=== PATIENT | female | born 2000 | race Caucasian/White ===

== ENCOUNTER 2021-08-24 21:37 | Day surgery (SDC) | payer OTHER ==
[2021-08-24] MEDS ORDERED: hydrALAZINE 20 MG/ML VIAL SLOW IVP PRN (22:47)
[2021-08-24 23:12] LABS: Bilirubin Neg (Negative); Blood, Urine Negative (Negative); Clarity Clear (Clear); Glucose, Urine (Dipstick) Normal (Negative); Ketone, Urine Negative (Negative); Leukocyte 25 (Negative); Nitrite Negative (Negative); Protein, Urine (Dipstick) Negative (Neg-Trace); Specific Gravity, Urine 1.005 (1.002-1.036); Urobilinogen Normal mg/dL (Less than 2)
[2021-08-24 23:20] LABS: Bacteria/HPF 1+ HPF (None Seen); RBC/HPF 0-3 HPF (0-3); Squamous Epithelial 0-3 HPF (0-3); WBC/HPF 0-3 HPF (0-3)
[2021-08-24 23:21] LABS: Urine Culture Reflex Yes Yes
== END 2021-08-24 23:04 | disposition home or self-care (01) ==
LOC: CSHLD/OP 21:37
PROVIDERS: ATTEND Obstetrics & Gynecology
DX: O26.852 Spotting complicating pregnancy, second trimester (principal); O99.612 Diseases of the digestive system complicating pregnancy, second trimester; K21.9 Gastro-esophageal reflux disease without esophagitis; O99.891 Other specified diseases and conditions complicating pregnancy; R82.71 Bacteriuria; Z3A.26 26 weeks gestation of pregnancy; Z79.899 Other long term (current) drug therapy; Z91.040 Latex allergy status
CPT/HCPCS: 81001; 87086

== ENCOUNTER 2021-11-17 21:07 | Day surgery (SDC) | payer OTHER ==
[2021-11-17 21:48] VITALS: BMI 39.6
[2021-11-17] MEDS ORDERED: hydrALAZINE 20 MG/ML VIAL SLOW IVP PRN (22:47)
== END 2021-11-17 22:46 | disposition home or self-care (01) ==
LOC: CSHLD/OP 21:07
PROVIDERS: ATTEND Family Medicine
DX: O47.1 False labor at or after 37 completed weeks of gestation (principal); Z79.899 Other long term (current) drug therapy; Z91.040 Latex allergy status; Z3A.39 39 weeks gestation of pregnancy
CPT/HCPCS: 99282

== ENCOUNTER 2021-11-23 09:00 | Outpatient (CLI) | payer OTHER | END 2021-11-23 09:01 | disposition home or self-care (01) | LOC: CSHLAB 09:00 | PROVIDERS: ATTEND Family Medicine | DX: Z20.822 Contact with and (suspected) exposure to COVID-19 (principal) | CPT/HCPCS: 87811 ==

== ENCOUNTER 2021-11-28 19:30 | Inpatient (IN) | payer OTHER ==
[2021-11-29] MEDS ORDERED: Promethazine HCl 25 MG/ML VIAL IM PRN ×2 (03:33→23:18)
[2021-11-29] MEDS ORDERED: Ibuprofen 800 MG TAB PO PRN (03:33)
[2021-11-29] MEDS ORDERED: Lactated Ringer's 1,000 ML IV SCH (03:33)
[2021-11-29] MEDS ORDERED: Methylergonovine 0.2 MG/ML VIAL IM PRN (03:33)
[2021-11-29] MEDS ORDERED: Carboprost 250 MCG/ML AMP IM PRN (03:33)
[2021-11-29] MEDS ORDERED: Lidocaine 1% (PF) 30 ML VIAL SC PRN (03:33)
[2021-11-29] MEDS ORDERED: Misoprostol 200 MCG TAB PR PRN (03:33)
[2021-11-29] MEDS ORDERED: hydrALAZINE 20 MG/ML VIAL SLOW IVP PRN ×2 (03:33→23:53)
[2021-11-29] MEDS ORDERED: Diphenoxylate HCl/Atropine Tablet PO PRN (03:33)
[2021-11-29] MEDS ORDERED: Ondansetron PF 4 MG/2 ML Vial IVP PRN ×3 (03:33→23:53)
[2021-11-29] MEDS ORDERED: HYDROcodone/Acetaminophen 5/325 mg Tablet PO PRN ×3 (03:33→23:53)
[2021-11-29] MEDS ORDERED: Acetaminophen 500 MG TAB PO PRN (03:33)
[2021-11-29] MEDS ORDERED: NS w/ Oxytocin 30 units 500 ML IV SCH ×2 (03:33→23:53)
[2021-11-29 03:52] VITALS: BMI 40.2
[2021-11-29] MEDS: Misoprostol 100 MCG TAB VAG SCH ×2 (04:29→07:40)
[2021-11-29 04:43] LABS: Hemoglobin 11.8 g/dL (12.0-15.5); Mean Corpuscular HGB CONC 33.7 g/dL (32.0-36.0); Mean Corpuscular Hemoglobin 30.3 pg (27.0-33.0); Mean Corpuscular Volume 89.7 fl (81.6-98.3); Mean Platelet Volume 11.7 fl (7.4-10.4); Platelet Count 131 10x3/uL (150-450); RBC Distribution Width 16.4 % (11.5-14.5); White Blood Cell (WBC) Count 7.9 10x3/uL (3.5-10.5)
[2021-11-29 05:08] LABS: HBSAg Index 0.18 S/CO (0-0.99); Hep B Surf Ag Non-Reactive S/CO (NonReactive)
[2021-11-29 05:09] LABS: Syphilis Antibody Nonreactive (Nonreactive); Syphilis Antibody Index 0.02 S/CO (<1.00 Non-Reactive)
[2021-11-29] MEDS ORDERED: Bupivacaine/Epinephrine 0.25% 30 ML VIAL ONE (08:00)
[2021-11-29] MEDS ORDERED: Bupivacaine 0.25% HCL 30 ML VIAL ONE (08:00)
[2021-11-29] MEDS: NS w/ Oxytocin 30 units 500 ML IV SCH ×2 (11:33→22:34)
[2021-11-29] MEDS ORDERED: Fentanyl 2 mcg/Bup 0.1% Cadd 100 ML ONE ×2 (13:41→20:14)
[2021-11-29 22:46] LABS: RapidComm Collect By CBN
[2021-11-29 22:49] LABS: RapidComm Collect By CBN; pH (Cord, venous) 7.178 (7.250-7.350)
[2021-11-29] MEDS ORDERED: Acetaminophen 325 MG TAB PO PRN (23:18)
[2021-11-29] MEDS ORDERED: Lactated Ringer's 500 ML IV PRN (23:18)
[2021-11-29] MEDS ORDERED: Naloxone HCl 0.4 mg/ml Vial IVP PRN ×2 (23:18)
[2021-11-29] MEDS ORDERED: diphenhydrAMINE 50 MG/ML VIAL IVP PRN (23:18)
[2021-11-29] MEDS ORDERED: ePHEDrine Sulfate 50 MG/10 ML VIAL SLOW IVP PRN (23:18)
[2021-11-29] MEDS ORDERED: Moisturizing Cream (Eucerin) 113 GM JAR TOP PRN (23:18)
[2021-11-29] MEDS ORDERED: Fentanyl 2 mcg/Bupivacaine 0.1% Cassette 100 ML EPIDURAL SCH (23:30)
[2021-11-29] MEDS ORDERED: Communication Order-Pharmacy FS SCH (23:30)
[2021-11-29] MEDS ORDERED: Boostrix 0.5 ML (Tdap) VIAL (>/=7 yrs of age) IM ONE (23:53)
[2021-11-29] MEDS ORDERED: Lanolin Ointment 7 GM TUBE TOP PRN (23:53)
[2021-11-29] MEDS ORDERED: Milk Of Magnesia 30 ML UDCUP PO PRN (23:53)
[2021-11-29] MEDS ORDERED: diphenhydrAMINE 25 MG CAP PO PRN (23:53)
[2021-11-29] MEDS ORDERED: Benzocaine-Menthol 82.5 ML CAN TOP PRN (23:53)
[2021-11-29] MEDS ORDERED: Bisacodyl 10 MG SUPP PR PRN (23:53)
[2021-11-29] MEDS ORDERED: Preparation H Ointment 28 GM TUBE PR PRN (23:53)
[2021-11-30] MEDS: Misoprostol 100 MCG TAB VAG SCH (00:42)
[2021-11-30] MEDS: Ibuprofen 800 MG TAB PO SCH ×3 (01:44→17:29)
[2021-11-30] MEDS ORDERED: Ibuprofen 800 MG TAB PO SCH (06:00)
[2021-11-30] MEDS: Docusate 100 MG CAP PO SCH ×2 (09:25→21:26)
[2021-11-30] MEDS: Prenatal Vitamin 1 TAB PO SCH (09:25)
[2021-11-30] MEDS: Ferrous Sulfate 325 MG TAB PO SCH ×2 (09:31→16:46)
[2021-12-01] MEDS: Ibuprofen 800 MG TAB PO SCH ×2 (02:35→13:37)
[2021-12-01 09:00] VITALS: BP 113/72; TEMP 98
[2021-12-01] MEDS: Prenatal Vitamin 1 TAB PO SCH (13:36)
[2021-12-01] MEDS: Docusate 100 MG CAP PO SCH (13:36)
[2021-12-01] MEDS: Ferrous Sulfate 325 MG TAB PO SCH (13:36)
== END 2021-12-01 15:55 | disposition home or self-care (01) | DRG 807 ==
LOC: CSHLD 11-29 03:22 → CSHPP 11-30 00:21
PROVIDERS: ADMIT Family Medicine; ATTEND Family Medicine
PROC: 10907ZC Drainage of Amniotic Fluid, Therapeutic from Products of Conception, Via Natural or Artificial Opening (ICD-10-PCS; principal; 2021-11-29)
PROC: 10E0XZZ Delivery of Products of Conception, External Approach (ICD-10-PCS; 2021-11-29)
PROC: 3E033VJ Introduction of Other Hormone into Peripheral Vein, Percutaneous Approach (ICD-10-PCS; 2021-11-29)
PROC: 0W8NXZZ Division of Female Perineum, External Approach (ICD-10-PCS; 2021-11-29)
PROC: 10H07YZ Insertion of Other Device into Products of Conception, Via Natural or Artificial Opening (ICD-10-PCS; 2021-11-29)
DX: O80 Encounter for full-term uncomplicated delivery (principal); Z37.0 Single live birth; Z3A.40 40 weeks gestation of pregnancy; Z91.040 Latex allergy status
CPT/HCPCS: 36415; 51702; 82805; 85027; 86780; 86850; 86900; 86901; 87340; J2405; J2590; S0020

== ENCOUNTER 2024-04-25 23:16 | Emergency (ER) | payer OTHER, SELFPAY ==
[2024-04-25 23:48] LABS: Specific Gravity, Urine 1.015 (1.005-1.030); pH, Urine 6.5 (5.0-9.0)
[2024-04-25 23:51] LABS: Pregnancy Test - Urine (BHCG) Negative (Negative); Pregu Control Background? CLEAR/WHITE (CLR/WHITE); Pregu Control Bar Appear? YES (CONTROL BAR)
[2024-04-25 23:52] LABS: Clarity Clear (Clear); Leukocyte Unable to Interpret (Negative); Nitrite Unable to Interpret (Negative); Protein, Urine (Dipstick) Unable to Interpret mg/dl (Neg-Trace); Specific Gravity 1.015 (1.002-1.036)
[2024-04-25 23:53] LABS: Bilirubin Unable to Interpret (Negative); Blood, Urine Unable to Interpret (Negative); Glucose, Urine (Dipstick) Unable to Interpret mg/dL (Negative); Ketone, Urine Unable to Interpret mg/dL (Negative); Urobilinogen UNABLE TO INTERPRET mg/dL (Less than 2)
[2024-04-26 00:28] LABS: Bacteria/HPF 2+ HPF (None Seen); CAUTI Indications for Culture Dysuria,urgency,freq; RBC/HPF 0-3 HPF (0-3); Squamous Epithelial 0-3 HPF (0-3); WBC/HPF 0-3 HPF (0-3)
[2024-04-26 00:30] LABS: Urine Culture Reflex No No
== END 2024-04-26 00:34 | disposition home or self-care (01) ==
LOC: CSHERS 23:16
DX: N39.0 Urinary tract infection, site not specified (principal); F17.290 Nicotine dependence, other tobacco product, uncomplicated
CPT/HCPCS: 81001; 81025; 99283

== ENCOUNTER 2024-11-26 20:02 | Emergency (ER) | payer MEDICAID, OTHER | END 2024-11-26 22:02 | disposition home or self-care (01) | LOC: CSHERS 20:02 | DX: O98.513 Other viral diseases complicating pregnancy, third trimester (principal); U07.1 COVID-19; O99.333 Smoking (tobacco) complicating pregnancy, third trimester; Z3A.30 30 weeks gestation of pregnancy | CPT/HCPCS: 71045; 87081; 87428; 87430; 93005 ==

== ENCOUNTER 2025-02-02 19:05 | Inpatient (IN) | payer MEDICAID ==
[2025-02-02] MEDS ORDERED: hydrALAZINE 20 MG/ML VIAL SLOW IVP PRN (19:28)
[2025-02-02] MEDS ORDERED: Ibuprofen 800 MG TAB PO PRN (19:28)
[2025-02-02] MEDS ORDERED: HYDROcodone/Acetaminophen 5/325 mg Tablet PO PRN (19:28)
[2025-02-02] MEDS ORDERED: Lidocaine 1% (PF) 30 ML VIAL SC PRN (19:28)
[2025-02-02] MEDS ORDERED: Ondansetron PF 4 MG/2 ML Vial IVP PRN (19:28)
[2025-02-02] MEDS ORDERED: Diphenoxylate HCl/Atropine Tablet PO PRN (19:28)
[2025-02-02] MEDS ORDERED: Carboprost 250 MCG/ML AMP IM PRN (19:28)
[2025-02-02] MEDS ORDERED: Methylergonovine 0.2 MG/ML VIAL IM PRN (19:28)
[2025-02-02] MEDS ORDERED: Tranexamic Acid 1,000 MG/10 ML VIAL IVP PRN (19:28)
[2025-02-02] MEDS ORDERED: Acetaminophen 500 MG TAB PO PRN (19:28)
[2025-02-02] MEDS ORDERED: Oxytocin 30 units/NS 500 ML 500 ML IV SCH (19:30)
[2025-02-02 19:50] VITALS: BMI 40.8
[2025-02-02 20:39] LABS: Hematocrit 31.9 % (34.9-44.5); Hemoglobin 10.9 g/dL (12.0-15.5); Mean Corpuscular Hemoglobin 29.8 pg (27.0-33.0); Mean Corpuscular Volume 87.2 fL (81.6-98.3); Platelet Count 154 10x3/uL (150-450); Red Blood Cell (RBC) Count 3.66 10x6/uL (3.90-5.03); White Blood Cell (WBC) Count 10.65 10x3/uL (3.5-10.5)
[2025-02-02 21:14] LABS: Hep B Surf Ag - L&D Non-Reactive S/CO (NonReactive)
[2025-02-02 21:16] LABS: Syphilis Antibody Index 0.04 S/CO (<1.00 Non-Reactive)
[2025-02-03] MEDS: Oxytocin 30 units/NS 500 ML 500 ML IV SCH (03:07)
[2025-02-03] MEDS ORDERED: Bupivacaine 0.25% HCL 30 ML VIAL ONE (08:00)
[2025-02-03] MEDS: fentaNYL/Ropivacaine Epidural 100 ML ONE (09:30)
[2025-02-03] MEDS ORDERED: Ondansetron PF 4 MG/2 ML Vial IVP PRN ×2 (09:35→14:40)
[2025-02-03] MEDS ORDERED: diphenhydrAMINE 50 MG/ML VIAL IVP PRN (09:35)
[2025-02-03] MEDS ORDERED: Acetaminophen 325 MG TAB PO PRN (09:35)
[2025-02-03] MEDS ORDERED: Communication Order-Pharmacy FS SCH (09:45)
[2025-02-03] MEDS ORDERED: fentaNYL 2 mcg/Ropivacaine 0.2% Epidural 100 ML CADD EPIDURAL SCH (09:45)
[2025-02-03] MEDS ORDERED: HYDROcodone/Acetaminophen 5/325 mg Tablet PO PRN (14:40)
[2025-02-03] MEDS ORDERED: Milk Of Magnesia 30 ML UDCUP PO PRN (14:40)
[2025-02-03] MEDS ORDERED: Bisacodyl 10 MG SUPP PR PRN (14:40)
[2025-02-03] MEDS ORDERED: Preparation H Ointment 28 GM TUBE PR PRN (14:40)
[2025-02-03] MEDS ORDERED: hydrALAZINE 20 MG/ML VIAL SLOW IVP PRN (14:40)
[2025-02-03] MEDS ORDERED: Lanolin Ointment 7 GM TUBE TOP PRN (14:40)
[2025-02-03] MEDS ORDERED: diphenhydrAMINE 25 MG CAP PO PRN (14:40)
[2025-02-03] MEDS: Ferrous Sulfate 325 MG TAB PO SCH (16:44)
[2025-02-03] MEDS: Ibuprofen 800 MG TAB PO SCH ×2 (16:49→22:53)
[2025-02-03] MEDS: Benzocaine-Menthol 82.5 ML CAN TOP PRN (22:56)
[2025-02-04 11:06] VITALS: BP 114/71; TEMP 98.2
== END 2025-02-04 17:45 | disposition home or self-care (01) | DRG 807 ==
LOC: CSHLD 19:05 → CSHPP 02-03 14:20
PROVIDERS: ADMIT Family Medicine; ATTEND Family Medicine
PROC: 10E0XZZ Delivery of Products of Conception, External Approach (ICD-10-PCS; principal; 2025-02-03)
PROC: 0KQM0ZZ Repair Perineum Muscle, Open Approach (ICD-10-PCS; 2025-02-03)
PROC: 10907ZC Drainage of Amniotic Fluid, Therapeutic from Products of Conception, Via Natural or Artificial Opening (ICD-10-PCS; 2025-02-03)
PROC: 3E0P7VZ Introduction of Hormone into Female Reproductive, Via Natural or Artificial Opening (ICD-10-PCS; 2025-02-03)
PROC: 4A1HXCZ Monitoring of Products of Conception, Cardiac Rate, External Approach (ICD-10-PCS; 2025-02-03)
DX: O70.1 Second degree perineal laceration during delivery (principal); Z37.0 Single live birth; Z3A.39 39 weeks gestation of pregnancy; Z91.040 Latex allergy status
CPT/HCPCS: 85027; 86780; 86850; 86900; 86901; 87340; J0665; J2590